=== PATIENT | male | born 1985 | race African-American/Black ===

== ENCOUNTER 2018-09-03 18:57 | Emergency (ER) | payer OTHER ==
[2018-09-03 19:14] VITALS: BP 114/74; PULSE 71; BMI 22.1
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
[2018-09-03] MEDS ORDERED: IBUPROFEN 400 MG TABLET (FP) PO ONE ×2 (19:57→20:07)
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
== END 2018-09-03 20:11 | disposition home or self-care (01) ==
LOC: JERFT 18:57
DX: M54.2 Cervicalgia (principal); M25.511 Pain in right shoulder; M25.532 Pain in left wrist; V43.52XA Car driver injured in collision with other type car in traffic accident, initial encounter; W22.11XA Striking against or struck by driver side automobile airbag, initial encounter; Y92.414 Local residential or business street as the place of occurrence of the external cause; Y93.89 Activity, other specified; Y99.8 Other external cause status; Z87.19 Personal history of other diseases of the digestive system; Z90.49 Acquired absence of other specified parts of digestive tract
CPT/HCPCS: 73110-TC-LR-FY; 99281-25

== ENCOUNTER 2019-12-19 12:04 | Emergency (ER) | payer OTHER ==
[2019-12-19 12:34] VITALS: BP 115/60; PULSE 75; TEMP 98; BMI 23.6
--- NOTE | 2019-12-19 13:38 | PDOC ---
History of Present Illness - General Chief Complaint: Eye Problem Stated Complaint: RT EYE REDNESS Time Seen by Provider: 12/19/19 13:13 History Source: Patient Exam Limitations: Clinical Condition - History of Present Illness Initial Comments: 12/19/19 13:27 Patient with no significant past medical history present with complaint of redness and discomfort in right eye status post touching eye yesterday while cleaning shrimp at home. Patient reported had blurry vision yesterday which has improved today. Denies any other symptoms. Denies photophobia, nausea, vomiting, headache or dizziness. Patient has not taken anything for symptoms Is this a multiple visit Asthma Patient?: No Timing/Duration: 24 hours Past History - Past Medical History Allergies/Adverse Reactions: Allergies Allergy/AdvReac Type Severity Reaction Status Date / Time No Known Allergies Allergy Verified 12/19/19 12:32 Home Medications: Ambulatory Orders Methocarbamol [Robaxin -] 1,500 mg PO Q8H #30 tablet 09/03/18 Erythromycin 0.5% Eye Ointment [Erythromycin 0.5% Eye Ointment -] 1 applic OD BID 5 Days #1 tube 12/19/19 Ofloxacin 0.3% Ophth Soln [Ocuflox -] 2 drop OP Q6H 5 Days #1 bottle 12/19/19 COPD: No GI Disorders: Yes (CROHN'S) - Surgical History Abdominal Surgery: Yes (colon resection) Appendectomy: Yes - Psycho Social/Smoking Cessation Hx Smoking History: Never smoked Hx Alcohol Use: No Drug/Substance Use Hx: No Review of Systems - Review of Systems Able to Perform ROS?: Yes Is the patient limited Macedonian proficient: No Constitutional: No: Fever, Night Sweats HEENTM: Yes: Symptoms Reported, See HPI, Eye Pain, Blurred Vision (improved). No: Tearing, Recent change in vision, Double Vision, Cataracts, Ear Pain, Ocular Prothesis, Ear Discharge, Nose Pain, Nose Congestion, Tinnitus, Nose Bleeding, Hearing Loss, Throat Pain, Throat Swelling, Mouth Pain, Dental Problems, Difficulty Swallowing, Mouth Swelling, Other Respiratory: No: Symptoms reported, See HPI, Cough, Orthopnea, Shortness of Breath, SOB with Exertion, SOB at Rest, Stridor, Wheezing, Productive cough, Hemoptysis, Other Cardiac (ROS): No: Symptoms Reported, See HPI, Chest Pain, Edema, Irregular Heart Rate, Lightheadedness, Palpitations, Syncope, Chest Tightness, Other ABD/GI: No: Symptoms Reported, See HPI, Nausea, Vomiting Neurological: No: Symptoms reported, Headache, Dizziness All Other Systems: Reviewed and Negative *Physical Exam - Vital Signs Last Vital Signs Temp Pulse Resp BP Pulse Ox 98 F 75 16 115/60 100 12/19/19 12:32 12/19/19 12:32 12/19/19 12:32 12/19/19 12:32 12/19/19 12:32 - Physical Exam General Appearance: Yes: Nourished, Appropriately Dressed. No: Apparent Distress HEENT: positive: EOMI, BUSHRA, Normal ENT Inspection, Normal Voice, Pale Conjunctivae (mild injected right conjunctiva. ). 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 Patient reported had blurry vision yesterday which has improved today. Denies any other symptoms. Denies photophobia, nausea, vomiting, headache or dizziness. Patient has not taken anything for symptoms Exam significant for mildly injected right conjunctiva with mild swelling to right lower eyelid with mild erythema. 20 out of 20 visual acuity in bilateral eyes individually and both eyes. Right eye irrigated and eyewash station for 5 minutes. No visible foreign object in the eye. Patient stable for patient management for conjunctivitis and blepharitis on topical erythromycin and ofloxacin eyedrops with ophthalmology follow-up. Discharge - Discharge Information Problems reviewed: Yes Clinical Impression/Diagnosis: Right conjunctivitis Qualifiers: Conjunctivitis type: acute Acute conjunctivitis type: unspecified Qualified Code(s): H10.31 - Unspecified acute conjunctivitis, right eye Blepharitis of eyelid of right eye Qualifiers: Blepharitis type: unspecified type Eyelid: lower Qualified Code(s): H01.002 - Unspecified blepharitis right lower eyelid Condition: Stable Disposition: HOME - Admission No - Additional Discharge Information Prescriptions: Erythromycin 0.5% Eye Ointment [Erythromycin 0.5% Eye Ointment -] 1 applic OD BID 5 Days #1 tube Ofloxacin 0.3% Ophth Soln [Ocuflox -] 2 drop OP Q6H 5 Days #1 bottle - Follow up/Referral Referrals: Aj Orellana MD [Staff Physician] - - Patient Discharge Instructions Patient Printed Discharge Instructions: DI for Blepharitis Additional Instructions: Take prescribed antibiotics dropping cream as prescribed for eye redness and pain. Keep eyes clean and hands clean with handwashing. Follow-up referred ophthalmology if no improvement in 2 days. Apply warm compress to eyelid as needed for swelling. - Post Discharge Activity
== END 2019-12-19 13:48 | disposition home or self-care (01) ==
LOC: JERFT 12:04
DX: H10.31 Unspecified acute conjunctivitis, right eye (principal); H01.002 Unspecified blepharitis right lower eyelid
CPT/HCPCS: 99281-25

== ENCOUNTER 2022-05-08 08:11 | Emergency (ER) | payer OTHER ==
[2022-05-08 08:18] VITALS: BMI 20.7
[2022-05-08] MEDS ORDERED: ONDANSETRON 4 MG/2 ML VIAL IVPUSH ONE (09:10)
[2022-05-08] MEDS ORDERED: morphine CARPU-JECT 4 MG/1 ML DISP.SYRIN IVPUSH ONE ×2 (09:10→14:04)
[2022-05-08] MEDS ORDERED: SODIUM CHLORIDE 1,000 ML IV STA ×2 (09:10→11:28)
[2022-05-08] MEDS ORDERED: ONDANSETRON 4 MG/2 ML VIAL ONE (09:57)
[2022-05-08] MEDS ORDERED: morphine SULFATE 4 MG/ML VIAL ONE ×2 (09:57→14:30)
[2022-05-08 10:34] LABS: BASO % 0.7 % (0-2.0); EOS % 6.5 % (0-4.5); HEMATOCRIT 44.3 % (35.4-49); HEMOGLOBIN 14.7 GM/dL (11.7-16.9); LYMPH % 32.2 % (8-40); MCHC 33.3 g/dl (32.0-35.9); MEAN CELL VOLUME 90.2 fl (80-96); MEAN PLT VOLUME 8.9 fl (7.5-11.1); MONO % 12.1 % (3.8-10.2); NEUT % 48.5 % (42.8-82.8); PLATELET COUNT 267 10^3/uL (134-434); RBC 4.91 M/mm3 (4.00-5.60); RDW 13.2 % (11.9-15.9); WHITE BLOOD COUNT 4.9 K/mm3 (4.0-10.0)
[2022-05-08 10:44] LABS: INR 1.09 (0.83-1.09); PROTHROMBIN TIME (PATIENT) 12.5 SEC (9.7-13.0)
[2022-05-08 10:47] LABS: ACTIVATED PTT 33.2 SECONDS (25.2-36.5)
[2022-05-08 10:49] LABS: ALBUMIN 4.2 g/dl (3.4-5.0); CALCIUM 10.3 mg/dL (8.5-10.1)
[2022-05-08 10:50] LABS: BLOOD UREA NITROGEN 12.9 mg/dL (7-18)
[2022-05-08 10:54] LABS: BILIRUBIN,TOTAL 10.4 mg/dL (0.2-1); TOT PROT 8.6 g/dl (6.4-8.2)
[2022-05-08 11:19] LABS: EPI CELLS 1 /uL (0-25.1); HYALINE CASTS 1 /uL (0-3.1); PH,URINE 6.5 (5.0-8.0); URINE APPEARANCE CLEAR; URINE BILIRUBIN 3+ (NEGATIVE); URINE COLOR DK YELLOW; URINE GLUCOSE (UA) NEGATIVE (NEGATIVE); URINE KETONE 2+ (NEGATIVE); URINE LEUK ESTERASE TRACE (NEGATIVE); URINE NITRITE POSITIVE (NEGATIVE); URINE PROTEIN TRACE (NEGATIVE); URINE RBC 10 /uL (0-23.9); URINE WBC 4 /uL (0-25.8)
[2022-05-08] MEDS ORDERED: SODIUM CHLORIDE 1,000 ML IV SCH (13:00)
[2022-05-08 14:07] LABS: CALCIUM 9.6 mg/dL (8.5-10.1)
[2022-05-08 14:08] LABS: ALBUMIN 3.9 g/dl (3.4-5.0); BLOOD UREA NITROGEN 11.1 mg/dL (7-18)
[2022-05-08 14:12] LABS: BILIRUBIN,TOTAL 10.1 mg/dL (0.2-1); TOT PROT 8.3 g/dl (6.4-8.2)
[2022-05-08 17:13] LABS: BILIRUBIN,DIRECT 6.1 mg/dL (0.0-0.2)
[2022-05-08] MEDS ORDERED: PIPERACILLIN/TAZOB 4.5 GM 4.5 GM in DEXTROSE 5%-WATER 100 ML IVPB ONE (18:06)
[2022-05-08] MEDS ORDERED: PIPERACILLIN/TAZOB 4.5 GM 4.5 GM/100 ML BAG IVPB ONE (18:48)
[2022-05-08 19:14] VITALS: TEMP 98.9
[2022-05-08 21:22] VITALS: BP 117/66; PULSE 71
== END 2022-05-08 21:22 | disposition short-term general hospital (02) ==
LOC: JER 08:11
PROC: 3E033NZ Introduction of Analgesics, Hypnotics, Sedatives into Peripheral Vein, Percutaneous Approach (ICD-10-PCS; principal; 2022-05-08)
PROC: 3E033NZ Introduction of Analgesics, Hypnotics, Sedatives into Peripheral Vein, Percutaneous Approach (ICD-10-PCS; 2022-05-08)
PROC: 3E033GC Introduction of Other Therapeutic Substance into Peripheral Vein, Percutaneous Approach (ICD-10-PCS; 2022-05-08)
PROC: 3E03329 Introduction of Other Anti-infective into Peripheral Vein, Percutaneous Approach (ICD-10-PCS; 2022-05-08)
PROC: 3E0337Z Introduction of Electrolytic and Water Balance Substance into Peripheral Vein, Percutaneous Approach (ICD-10-PCS; 2022-05-08)
PROC: 3E0337Z Introduction of Electrolytic and Water Balance Substance into Peripheral Vein, Percutaneous Approach (ICD-10-PCS; 2022-05-08)
DX: E86.0 Dehydration (principal); R74.8 Abnormal levels of other serum enzymes
CPT/HCPCS: 36415; 71046-TC-FY; 74176-TC; 76705-TC; 80053; 81003; 82248; 83690; 84478; 85025; 85610; 85730; 86704; 86708; 86803; 87077; 87086; 87340; 87517; 93005; 93010; 99285-25; C9803-CS; U0003; U0005